=== PATIENT | female | born 1985 | race Caucasian/White ===

== ENCOUNTER 2019-01-06 02:59 | Inpatient (IN) ==
[2019-01-06] MEDS ORDERED: OXYTOCIN 30 UNITS/500 ML BAG IV PRN ×3 (03:56→13:51)
[2019-01-06] MEDS ORDERED: miSOPROStol 50 MCG TAB PO STA (04:02)
[2019-01-06] MEDS ORDERED: PENICILLIN G POTASSIUM 6 MU in DEXTROSE 5% 250 ML IV STA (04:09)
--- NOTE | 2019-01-06 04:10 | History & Physical Report ---
Date of Service January 06, 2019 Assessment & Plan (1) PROM (premature rupture of membranes): 33yo at 37.6 weeks GA. PROM 1. Fetus: Cat 1 2. Labor: PROM. SL cytotec 50mcg. 3. Vitals: WNL 4. GBS+ : PCN History of Present Illness Primary Care Provider: Av Tracey 33yo at 37.6 weeks GA. Present with LOF. Irregular contractions. No VB. Normal FM. complicated by GB+, and prescription narcotic use, Hx gastric bypass and cervical cone. Allergies Allergy/AdvReac Type Severity Reaction Status Date / Time morphine Allergy Anaphylaxis Verified 08/10/18 00:08 Home Medications Home Medications Medication Instructions Recorded Confirmed Type dicyclomine 10 mg PO BID 08/10/18 01/06/19 History hydrocodone-acetaminophen 1 tab PO Q6 PRN 08/10/18 01/06/19 History ondansetron HCl 4 mg PO TID PRN 08/10/18 01/06/19 History pantoprazole [Protonix] 40 mg PO BID 08/10/18 01/06/19 History sucralfate [Carafate] 1 g PO ACHS PRN 08/10/18 01/06/19 History polysaccharide iron complex 150 mg PO DAILY 01/06/19 01/06/19 History [Ferrex 150] vit-iron fum-folic ac 1 tab PO DAILY 01/06/19 01/06/19 History [ Vitamin] Patient History Medical History Anemia History of herniated intervertebral disc History of stomach ulcers Hx of endometriosis Chronic pain Surgical History History of removal of ovarian cyst Hx of cholecystectomy Hx of cone biopsy of cervix Hx of gastric bypass Social History Preferred Language: Swiss Communication Ability: Effective Seasoning Sprayer Required: No Beliefs That Will Affect Care: None marital status: Current Living Situation: Spouse Other Information That Helps Us Care for You: No Feels Safe at Home: Yes Safety Concerns: Feels Safe At This Time Smoking Status: Current every day smoker Tobacco Type: cigarettes Second Hand Exposure: Yes Hx Alcohol Use: No Hx Substance Use: No Physical Exam Genitourinary: Manual OB Exam: + cervical dilation (Closed), + cervical effacement 10% and + station high OB Exam Monitor Tracing: + external FHT monitor used, + external uterine monitor used, + category I and + normal FHT variability Results & Data Vital Signs (Past 12 Hours) Vital Signs Temp Pulse Resp BP 01/06/19 03:30 36.9 C 18 01/06/19 03:28 76 114/70 01/06/19 03:17 36.9 C 01/06/19 03:15 77 117/77
[2019-01-06] MEDS ORDERED: miSOPROStol 50 MCG TAB SL ONE (04:16)
[2019-01-06 04:33] LABS: Hematocrit (blood only) 30.3 % (37-47); Hemoglobin 10.3 g/dL (12.0-16.0); Mean Corpuscular Volume 100.3 fL (80-100); Mean Platelet Volume 10.4 fL (7.4-10.4); Platelet Count 196 K/uL (130-400); RDW Coefficient of Variation 12.5 % (11.5-14.5); RDW Standard Deviation 46.2 fL (36.4-46.3); Red Blood Count 3.02 M/uL (4.2-5.4); White Blood Count 14.62 K/uL (4.8-10.8)
[2019-01-06] MEDS: LACTATED RINGER'S 1,000 ML IV PRN ×2 (04:48→10:32)
[2019-01-06] MEDS: PENICILLIN G POTASSIUM 3 MU in DEXTROSE 5% 100 ML IV PRN ×2 (08:48→12:59)
--- NOTE | 2019-01-06 08:56 | Labor Progress Brief Note ---
Date of Service January 06, 2019 Subjective Patient crampy, still leaking a lot of fluid, considering epidural. Assessment & Plan (1) PROM (premature rupture of membranes): IOL for PROM to continue - move to pitocin now. I believe patient does have h/o cone (there is some controversy in her records - pap smear results show h/o cone, patient does not recall this. However she just told me at bedside that she had a "hysterectomy every 6 months for endometriosis" with Dr. Conner for up to 4 years in the past, so she may be a poor historian.) The cervix is behaving like a previously coned / scarred cervix. Therefore moving to pitocin as the effacement and station are advanced, and I suspect dilation will "pop" open in the near future. GBS antibiotics continue. PROM onset of labor timing: onset of labor more than 24 hours following rupture PROM gestational age: full term Qualified Code(s): O42.12 - Full-term premature rupture of membranes, onset of labor more than 24 hours following rupture Present on Admission?: Yes Physical Exam Physical Exam: cvx ft/100/+1 FHT Cat 1 [place] Q6 irreg LOF clear with bloody show noted Results & Data Vital Signs (Past 12 Hours) Vital Signs Temp Pulse Resp BP 01/06/19 07:07 71 113/71 01/06/19 07:04 36.8 C 16 01/06/19 06:00 18 01/06/19 05:30 18 01/06/19 03:30 36.9 C 01/06/19 03:28 76 114/70 01/06/19 03:17 36.9 C 01/06/19 03:15 77 117/77 Laboratory Results Laboratory Results - last 24 hr 01/06/19 04:14 WBC 14.62 H RBC 3.02 L Hgb 10.3 L Hct 30.3 L MCV 100.3 H MCH 34.1 H MCHC 34.0 RDW Std Deviation 46.2 RDW Coeff of [place] 12.5 Plt Count 196 MPV 10.4
[2019-01-06] MEDS ORDERED: fentaNYL citrate 100 MCG/2 ML VIAL ONE (09:57)
[2019-01-06] MEDS ORDERED: BUPIVACAINE 0.25% 30 ML VIAL ONE (09:57)
[2019-01-06] MEDS ORDERED: ePHEDrine sulfate 50 MG/ML AMP ONE (09:57)
[2019-01-06] MEDS ORDERED: fentaNYL 2MCG/ML ROPIV 1.25MG/ML 100 ML BAG EPI ONE (09:58)
[2019-01-06] MEDS ORDERED: DiphenhydrAMINE HCL 50 MG/ML VIAL IV PRN (10:18)
[2019-01-06] MEDS ORDERED: ONDANSETRON INJ 2 MG/ML 2 ML VIAL IV PRN (10:18)
[2019-01-06] MEDS ORDERED: NALOXONE HCL 1 MG in SODIUM CHLORIDE 0.9% 1000ML 1,000 ML IV PRN (10:18)
[2019-01-06] MEDS ORDERED: ePHEDrine sulfate 50 MG/ML AMP IV PRN (10:18)
[2019-01-06] MEDS ORDERED: NALOXONE HCL 0.4 MG/1 ML VIAL/CARP IV PRN (10:18)
[2019-01-06] MEDS ORDERED: fentaNYL 2MCG/ML ROPIV 1.25MG/ML 100 ML BAG EPI PRN (10:18)
--- NOTE | 2019-01-06 10:19 | Anesthesiology Consultation ---
Date of Service January 06, 2019 Assessment & Plan (1) Encounter for pre-operative examination: Chart Review Chart Review: Patient NOT seen in Pre Admission Testing and Acceptable Risk for Labor Epidural Consults Requested none History Height/Weight Height: 5 ft 4 in Weight: 84.822 kg Allergies Allergy/AdvReac Type Severity Reaction Status Date / Time morphine Allergy Anaphylaxis Verified 08/10/18 00:08 Medications Home Medications Medication Instructions Recorded Confirmed Last Taken dicyclomine 10 mg PO BID 08/10/18 01/06/19 12/27/18 hydrocodone-acetaminophen 1 tab PO Q6 PRN 08/10/18 01/06/19 12/27/18 ondansetron HCl 4 mg PO TID PRN 08/10/18 01/06/19 01/05/19 pantoprazole [Protonix] 40 mg PO BID 08/10/18 01/06/19 01/05/19 sucralfate [Carafate] 1 g PO ACHS PRN 08/10/18 01/06/19 12/18/18 polysaccharide iron complex 150 mg PO DAILY 01/06/19 01/06/19 01/05/19 [Ferrex 150] vit-iron fum-folic ac 1 tab PO DAILY 01/06/19 01/06/19 01/05/19 [ Vitamin] Active Medications Generic Name Dose Route Start Last Admin Trade Name Freq PRN Reason Stop Dose Admin Lactated Ringer's 1,000 mls @ 125 mls/hr 01/06/19 03:56 01/06/19 10:32 Lr IV 01/08/19 03:55 125 mls/hr .Q8H PRN Administration L&D Protocol Protocol Penicillin G Potassium 3 mu/ 106 mls @ 100 mls/hr 01/06/19 03:56 01/06/19 10:23 Dextrose IV 01/16/19 03:55 Infused Q4H PRN Titration Give until delivery Oxytocin 30 units in 500 mls @ 1 mls/hr 01/06/19 08:52 01/06/19 09:30 Pitocin IV 01/08/19 08:51 0.06 units/hr .Q24H PRN 1 mls/hr Labor Induction/Augmentation Administration Protocol 0.06 UNITS/HR Past Medical History Medical History Anemia History of herniated intervertebral disc History of stomach ulcers Hx of endometriosis Chronic pain chronic back pain. denied neurologic deficits Exercise / Class Metabolic Activity II 4-5 Yardwork/Stairs/Walk up hill Past Surgical History Surgical History History of removal of ovarian cyst Hx of cholecystectomy Hx of cone biopsy of cervix Hx of gastric bypass Past Anesthesia History No Hx of Anesthesia Complications and No Family Hx of Anesthesia Complications History of PONV No Hx of PONV and No Hx of Motion Sickness Social History Smoking Status: Current every day smoker tobacco type: cigarettes Hx Alcohol Use: No Hx Substance Use: No Physical Exam Vital Signs Last Vital Signs Temp 36.7 C 01/06/19 09:05 Pulse 72 01/06/19 10:37 Resp 16 01/06/19 09:05 BP 124/77 01/06/19 10:25 Pulse Ox 99 01/06/19 10:37 Testing Laboratory Results 01/06/19 04:14
--- NOTE | 2019-01-06 11:42 | Labor Progress Brief Note ---
Date of Service January 06, 2019 Subjective Was feeling pressure with contractions prior to epidural; now feeling nothing. Assessment & Plan (1) PROM (premature rupture of membranes): No urge to push and just got pain relief; wants to wait a bit to allow urge to return before pushing. Plan to start second stage with urge or no later than 12:30. PROM onset of labor timing: onset of labor more than 24 hours following rupture PROM gestational age: full term Qualified Code(s): O42.12 - Full-term premature rupture of membranes, onset of labor more than 24 hours following rupture Present on Admission?: Yes Physical Exam Physical Exam: FHT Cat 1 [place] Q2-6 irreg Cvx 10/100/+2 Bloody show noted LOF clear continues Results & Data Vital Signs (Past 12 Hours) Vital Signs Temp Pulse Resp BP Pulse Ox 01/06/19 11:38 72 109/60 01/06/19 11:37 73 100 01/06/19 11:32 71 100 01/06/19 11:31 73 117/66 01/06/19 11:27 70 107/65 100 01/06/19 11:22 69 100 01/06/19 11:21 66 109/64 01/06/19 11:17 71 107/63 100 01/06/19 11:15 16 01/06/19 11:12 74 100 01/06/19 11:07 72 100 01/06/19 11:06 70 105/61 01/06/19 11:02 76 100 01/06/19 11:00 36.6 C 16 01/06/19 10:59 75 110/70 01/06/19 10:57 79 114/75 100 01/06/19 10:55 69 107/64 01/06/19 10:53 75 117/69 01/06/19 10:52 75 100 01/06/19 10:51 73 106/65 01/06/19 10:49 77 110/70 01/06/19 10:47 78 118/68 100 01/06/19 10:45 73 16 109/69 01/06/19 10:43 74 109/70 01/06/19 10:42 78 95 01/06/19 10:37 72 99 01/06/19 10:32 73 99 01/06/19 10:28 100 H 90 01/06/19 10:27 84 95 01/06/19 10:25 71 124/77 01/06/19 10:22 76 100 01/06/19 10:17 73 100 01/06/19 10:12 75 100 01/06/19 10:07 83 96 01/06/19 10:02 73 100 01/06/19 09:20 78 119/76 01/06/19 09:05 36.7 C 16 01/06/19 07:07 71 113/71 01/06/19 07:04 36.8 C 16 01/06/19 06:00 18 01/06/19 05:30 18 01/06/19 03:30 36.9 C 18 01/06/19 03:28 76 114/70 01/06/19 03:17 36.9 C 18 01/06/19 03:15 77 117/77
--- NOTE | 2019-01-06 13:33 | Procedure Note ---
Vaginal Delivery Summary Date of Service January 06, 2019 Patient pushed to deliver a viable female in ROP position. The shoulders and body delivered without any difficulty. The infant was placed on the maternal abdomen and the cord was doubly clamped by the MD, then cut by the FOB. The placenta delivered spontaneously and intact with a 3VC. A second degree perineal tear and a R labial tear were both repaired without difficulty using vicryl suture. Fundus was firm and lochia minimal after delivery. EBL 300.
[2019-01-06] MEDS ORDERED: BENZOCAINE 20% AER SPR 82.5 GM CAN EXT PRN (13:51)
[2019-01-06] MEDS ORDERED: ACETAMINOPHEN 325 MG TAB PO PRN (13:51)
[2019-01-06] MEDS ORDERED: HYDROCORTISONE ACETATE 25 MG SUPP PR PRN (13:51)
[2019-01-06] MEDS ORDERED: SUPERCREAM 0.870% 15 GM JAR EXT PRN (13:51)
[2019-01-06] MEDS ORDERED: DIPHTHERIA/TETANUS/PERTUSSIS 0.5 ML SYR/VIAL IM ONE (13:51)
[2019-01-06] MEDS ORDERED: IBUPROFEN 600 MG TAB PO PRN (13:51)
[2019-01-06] MEDS ORDERED: LACTATED RINGER'S 1,000 ML IV SCH (14:00)
--- NOTE | 2019-01-06 14:51 | Anesthesia Procedure Note ---
Date of Service January 06, 2019 Anesthesia Post Epidural Note Vital Signs Vital Signs: Temp Pulse Resp BP Pulse Ox 37.1 C 77 22 105/67 99 01/06/19 12:45 01/06/19 14:39 01/06/19 13:00 01/06/19 14:39 01/06/19 13:22 Pain Intensity Bilateral Abdomen: Pain Intensity: 3 Notes Mental Status: alert / awake / arousable Patient Amnestic to Procedure: Yes Nausea / Vomiting: adequately controlled Pain: adequately controlled Airway Patency, RR, SpO2: stable & adequate BP & HR: stable & adequate Hydration State: stable & adequate Neuraxial Anesthesia: was administered and sensory block is resolving Anesthetic Complications: no major complications apparent and Pt Satisfied with anesthetic care Epidural: Removed without complications and With tip intact
[2019-01-06] MEDS ORDERED: HYDROCODONE/ACETAMOPHEN 5/325MG TAB PO PRN (16:00)
[2019-01-06] MEDS: PANTOprazole 40 MG TAB PO SCH (20:31)
[2019-01-06] MEDS: DOCUSATE SODIUM 100 MG CAP PO SCH (20:31)
[2019-01-06] MEDS: DICYCLOMINE HCL 10 MG CAP PO SCH (20:31)
[2019-01-07] MEDS: SUCRALFATE 1 GM TAB PO PRN ×2 (00:46→09:45)
[2019-01-07] MEDS: ALUMINUM/MAGNESIUM/SIMETH (MAALOX MAX) 30 ML UDC PO PRN ×2 (00:46→09:47)
[2019-01-07] MEDS ORDERED: ONDANSETRON HCL 8 MG in DEXTROSE 5% 50 ML IV ONE (01:37)
[2019-01-07] MEDS ORDERED: HYDROmorphone INJ 0.5 MG/0.5 ML SYR IV STA (03:03)
--- NOTE | 2019-01-07 03:18 | Communication Note ---
Date of Service: January 07, 2019 I was called by RN to see the patient due to ongoing upper abdominal / stomach pain and nausea despite carafate, maalox and zofran as ordered. I arrived to find the room dark, FOB in bed and either calm/quiet or asleep, and the bathroom door closed, no sounds from within the bathroom. After I said "hello?" the FOB said "she's in the bathroom." I then heard retching noises. I asked permission then opened the bathroom door to find Nichole on her knees in front of the toilet wearing only a shirt, and rocking back and forth. There was a small amout of clear spittle on top of the toilet water but no obvious emesis. The patient told me "it's my ulcers, they're real bad." She is confident of this as the pain feels exactly like when she had exacerbation of ulcers in the past. At those times she says she "went to the ER and they gave me a GI cocktail and IV dilaudid." I asked if the carafate/maalox/zofran she already had was helpful and she says "the norco helped until I threw it up an hour ago." She is passing gas and has voided since delivery. She was delivered vaginally and without unusual events or difficulties; in fact it was a fairly short second stage. She was able to sit back and allow me to do an exam. The abdomen is soft, nontender, without guarding or rebound. There is a fundus palpable at the umbilicus. She points to the epigastric region when asked to localize her pain. She does not seem to have significant esophageal pain above the level of the xyphoid. Her voice is normal and fluid when she responds to questions in the bathroom. Her respirations are normal and nonlabored. I gathered further information from the nurse. The patient's prior emesis was not witnessed; she has only seen spit in the toilet and specifically denies any bilious or bloody quality to any of that. The patient is known to have had a gastric bypass and the RN is aware, and the patient has not had any motrin. Additionally the patient has a chronic narcotic use history, with prescription of 30 tabs of [place] per 22 days from her PCP. She states she quit cold turkey using several tabs per day as of December 27 and has had none since then "because she didn't want the baby to be born addicted." I note that mom's vitals have been normal, and status in utero was reassuring. The differential of her current condition is broad. It ranges from disruption of her gastric bypass, or pancreatitis, or peptic ulcer disease, to GERD, and even withdrawal from narcotics or drug seeking behavior. The lack of obvious bilious or bloody emesis, and her benign abdominal exam, are somewhat reassuring. Nevertheless I am ordering labs and have advised the RN to alert me immediately if there is blood in emesis at any point. I have also ordered viscous lidocaine cocktail, and one dose of IV dilaudid to cover both pain and/or possible withdrawal with inability to tolerate PO.
[2019-01-07] MEDS ORDERED: ALUMINUM/MAGNESIUM SUSP 18 ML, LIDOCAINE HCL VISCOUS 2% 6 ML, BARCODE IDENTIFIER 1 EA PO ONE ×3 (03:30→21:00)
[2019-01-07 03:46] LABS: Hematocrit (blood only) 33.1 % (37-47); Mean Corpuscular Hgb Conc 33.2 g/dL (32-36); Mean Corpuscular Volume 102.2 fL (80-100); Mean Platelet Volume 10.2 fL (7.4-10.4); Platelet Count 202 K/uL (130-400); RDW Coefficient of Variation 12.4 % (11.5-14.5); RDW Standard Deviation 45.9 fL (36.4-46.3); Red Blood Count 3.24 M/uL (4.2-5.4); White Blood Count 25.41 K/uL (4.8-10.8)
[2019-01-07 04:10] LABS: Albumin Level 2.7 gm/dl (3.4-5.0); BUN Creatinine Ratio 12.6 (10-20); Basophils # (auto) 0.03 K/uL (0-0.2); Basophils % (auto) 0.1 %; Calcium 8.7 mg/dl (8.5-10.1); Creatinine Clr Calc Pharmacy 131.7 ml/min; Eosinophils # (auto) 0.03 K/uL (0-0.5); Eosinophils % (auto) 0.1 %; Est GFR (African American) 135.9; Est GFR (Non-African American) 117.2; Immature Granulocytes # (auto) 0.21 K/uL (0.00-0.02); Immature Granulocytes % (auto) 0.8 %; Lymphocytes # (auto) 1.62 K/uL (1.2-3.4); Lymphocytes % (auto) 6.4 %; Monocytes # (auto) 1.07 K/uL (0.11-0.59); Monocytes % (auto) 4.2 %; Neutrophils # (auto) 22.45 K/uL (1.4-6.5); Neutrophils % (auto) 88.4 %; Potassium 4.1 mmol/L (3.5-5.1); RBC Morphology Unremarkable
[2019-01-07 04:13] LABS: Albumin Globulin Ratio 0.8 (0.9-2); Bilirubin,Total 0.3 mg/dl (0.2-1); Globulin 3.5 gm/dl (2.5-4.0); Total Protein 6.2 gm/dl (6.4-8.2)
--- NOTE | 2019-01-07 04:41 | Communication Note ---
Date of Service: January 07, 2019 Patient examined again. She is found in bed, in knee-chest position, with FOB asleep in his cot nearby. She states she got "some" relief from the lidocaine but still hurting in the same epigastric location. I asked if this has happened before and she relates that yes, this same pain and severity are not uncommon for her at home; her FOB is "used to this" and she takes the norco at home for this exact pain. I asked the patient to lay back so I could re-examine her abdomen. She continues to have a soft, nontender, nonrigid abdomen without guarding or rebound. Fundus firm at umb. Pain continues to be in epigastric region and is not significantly exacerbated by palpation. Patient is able to reposition without difficulty and her resp rate and voice remain normal. Vitals and labs reviewed. VSS WNL, and the labs are reassuring. The WBC are elevated but this is not unexpected in the immediate setting and are not accompanied by vital sign changes suspicious for infection/peritonitis. Pancreatic and liver enzymes are normal, lytes are normal. Patient requests norco 2x tablets as this is what she takes at home for this pain. I note that nobody actually witnessed emesis of her prior norco tablet a few hours ago, and that she also has received 0.5mg dilaudid IV; however given her chronic narcotic use levels at home based on PDMP, I suspect she will not be over-treated with two norco tabs given at this time even if she fully absorbed the prior dose. Ordered at this time.
[2019-01-07] MEDS: HYDROCODONE/ACETAMOPHEN 5/325MG TAB PO PRN ×4 (05:08→21:11)
--- NOTE | 2019-01-07 05:59 | Obstetrical Progress Note ---
Date of Service <Alex Page DO - Last Filed: 01/07/19 05:59> January 07, 2019 Assessment & Plan <Alex Page DO - Last Filed: 01/07/19 05:59> (1) (spontaneous vaginal delivery): -vital signs reviewed and WNL -last Hgb 11.0 -Blood type: A+, GBS+, Rubella Immune -pt doing well clinically -encourage ambulation, monitor and control pain with motrin tylenol, cont regular diet, monitor lochia -cont encourage bottle/breast feeding Subjective <Alex Page DO - Last Filed: 01/07/19 05:59> 33 y/o PPD1 found in bed this morning in mild distress. Overnight reports of abd pain and associated N/V. Pt not tolerating PO intake, notes has vomited ~12 times, non bloody. Abd pain has somewhat improved since lidocaine cocktail and notes vomiting is also slowing down, latest episode just phlegm colored. Pt states that she has no other pain other than appropriate soreness. Has not yet attempted to ambulate. She is bottle feeding without issue. No issues with voiding, no BM yet. No other acute concerns or complaints. Review of Systems All systems reviewed & are unremarkable except as noted in HPI & below Physical Exam <Alex Page DO - Last Filed: 01/07/19 05:59> Constitutional WD/WN, vitals as above Respiratory normal respiratory effort, lungs clear to auscultation Cardiovascular RRR, no murmur, no edema Gastrointestinal (Abdomen) mild epigastric tenderness, no guarding/rebound Fundus not able to be palpated 2/2 pain and limited pt cooperation, please see attending findings Skin no rashes, warm and dry Psychiatric A+Ox3, euthymic affect Lymphatic no LE swelling, no calf tenderness Results & Data <Alex Page DO - Last Filed: 01/07/19 05:59> Vital Signs (Past 12 Hours) Vital Signs Temp Pulse Resp BP Pulse Ox 01/07/19 03:44 36.5 C 80 18 135/83 100 01/06/19 23:11 36.6 C 75 16 113/78 100 01/06/19 19:27 36.9 C 72 20 122/78 100 Laboratory Results Laboratory Results - last 24 hr 01/07/19 01/07/19 03:34 03:34 WBC 25.41 H D RBC 3.24 L Hgb 11.0 L Hct 33.1 L MCV 102.2 H MCH 34.0 MCHC 33.2 RDW Std Deviation 45.9 RDW Coeff of [place] 12.4 Plt Count 202 MPV 10.2 Immature Gran % (Auto) 0.8 Neut % (Auto) 88.4 Lymph % (Auto) 6.4 [place] % (Auto) 4.2 Eos % (Auto) 0.1 Baso % (Auto) 0.1 Immature Gran # (Auto) 0.21 H Neut # (Auto) 22.45 H Lymph # (Auto) 1.62 [place] # (Auto) 1.07 H Eos # (Auto) 0.03 Baso # (Auto) 0.03 RBC Morphology Unremarkable Sodium 143 Potassium 4.1 Chloride 114 H Carbon Dioxide 24 Anion Gap 5.0 BUN 8 Creatinine 0.64 Est Cr Clr Drug Dosing 131.7 Est GFR ( Amer) 135.9 Est GFR (Non-Af Amer) 117.2 BUN/Creatinine Ratio 12.6 Glucose 111 H Calcium 8.7 Total Bilirubin 0.3 AST 23 ALT 17 Alkaline Phosphatase 144 H Total Protein 6.2 L Albumin 2.7 L Globulin 3.5 Albumin/Globulin Ratio 0.8 L Amylase 39 Lipase 202 Medications Administered Current Inpatient Medications Acetaminophen (Tylenol) 650 mg PO Q6H PRN PRN Reason: Pain/JOSEPH/Fever Stop: 02/05/19 13:50 Last Admin: 01/06/19 17:53 Dose: 650 mg Documented by: Hydrocodone Bitart/Acetaminophen ([place] 5/325) 1 - 2 tab PO Q6H PRN PRN Reason: Pain Stop: 01/21/19 04:39 Last Admin: 01/07/19 05:08 Dose: 2 tab Documented by: Al Hydrox/Mg Hydrox/Simethicone (Maalox Max) 30 ml PO Q6H PRN PRN Reason: GI Upset Stop: 02/06/19 00:08 Last Admin: 01/07/19 00:46 Dose: 30 ml Documented by: Benzocaine (Dermoplast Pain Relieving [place]) 1 appln EXT PRN PRN PRN Reason: Perineal Discomfort Stop: 02/05/19 13:50 Last Admin: 01/06/19 16:26 Dose: 1 appln Documented by: Cocaine HCl (Supercream 0.870%) 1 gm EXT BID PRN PRN Reason: Hemorrhoidal Inflammation Stop: 01/20/19 13:50 Last Admin: 01/06/19 17:43 Dose: 1 gm Documented by: Dicyclomine HCl (Bentyl) 10 mg PO BID MARY Stop: 02/05/19 20:59 Last Admin: 01/06/19 20:31 Dose: 10 mg Documented by: Diphenhydramine HCl (Benadryl Capsule) 25 mg PO Q8 PRN PRN Reason: Itching Stop: 02/05/19 15:58 Last Admin: 01/06/19 16:07 Dose: 25 mg Documented by: Docusate Sodium (Colace) 100 mg PO BID MARY Stop: 02/05/19 20:59 Last Admin: 01/06/19 20:31 Dose: 100 mg Documented by: Hydrocortisone (Anusol Hc) 25 mg AR BID PRN PRN Reason: Hemorrhoidal Inflammation Stop: 02/05/19 13:50 Oxytocin (Pitocin) 30 units in 500 mls @ 333.333 mls/hr IV .Q1H30M PRN; Protocol PRN Reason: Bleeding Control Stop: 02/05/19 03:55 Oxytocin (Pitocin) 30 units in 500 mls @ 333.333 mls/hr IV .Q1H30M PRN; Protocol PRN Reason: Bleeding Control Stop: 02/05/19 13:50 Lactated Ringer's (Lr) 1,000 mls @ 125 mls/hr IV .Q8H MARY Stop: 02/05/19 13:59 Pantoprazole Sodium (Protonix) 40 mg PO BID MARY Stop: 02/05/19 20:59 Last Admin: 01/06/19 20:31 Dose: 40 mg Documented by: Prenat Multivit/[employer]/Iron/Folic Ac ( Vitamin) 1 tab PO QAM MARY Stop: 02/06/19 08:59 Sucralfate (Carafate Tab) 1 gm PO ACHS PRN PRN Reason: Gi Upset Stop: 02/06/19 00:08 Last Admin: 01/07/19 00:46 Dose: 1 gm Documented by: <Tete Scales MD - Last Filed: 01/07/19 07:00> Co-Signing Physician Notes Patient examined again this morning after resident visited her. She is noted to be sleeping on my arrival, easily roused to voice. She states pain is now controlled. Lochia normal, voiding, +flatus, +regular diet and no further emesis since viscous lidocaine and last two pills norco. VSS and WNL. Abdomen remains soft, NT, no rebound or guarding, and FF @ u. Of note, nurse has become aware that there are several prescription medications in the room which patient brought from home. The patient states that some of these are her 's, some are hers. Nurse current cataloguing what is in the room. There is one bottle of carafate labeled as being for the patient. There are some unlabeled bottles whose contents (including several different pill types) and funeral director/embalmer/owner cannot be determined for certain. The patient states she would prefer to send these meds home with family members as opposed to having security hold them during her stay. The importance of NOT taking any meds in addition to those we are providing and monitoring was reiterated to her by nurse. Resident Activity Tracking <Alex Page DO - Last Filed: 01/07/19 05:59> Resident Involvement: Resident Care Provided Care Provided: OB Delivery
[2019-01-07] MEDS: PANTOprazole 40 MG TAB PO SCH ×2 (09:44→21:10)
[2019-01-07] MEDS: DICYCLOMINE HCL 10 MG CAP PO SCH ×2 (09:45→21:10)
[2019-01-07] MEDS: DOCUSATE SODIUM 100 MG CAP PO SCH (09:48)
[2019-01-07] MEDS: PRENATAL VITAMIN 1 TAB PO SCH (09:49)
[2019-01-07] MEDS: SUCRALFATE 1 GM/10 ML UDC PO PRN ×2 (12:38→16:58)
[2019-01-07] MEDS: PROMETHAZINE HCL 25 MG TAB PO PRN ×2 (13:11→21:10)
--- NOTE | 2019-01-07 15:00 | Obstetrical Progress Note ---
Date of Service January 07, 2019 Subjective Called to patient room to see her - she is lying on the bed facedown in position. She tells me she has abdominal pain, states this is long-standing, and that she usually takes norco and ativan for this, as prescribed by PCP. She has taken [place] today, but then about 1.5 hours later, threw up and felt that it was only partially digested. She was given PO phenergan for that vomiting and then stated that she vomited a while later after that too. The vomitus has been mostly clear, but there has also been some streaks of bright red blood. No black/tarry/coffee-ground like vomitus. States her IV pulled out while she was throwing up this morning. She also will often be given a GI cocktail in the ER for this type of pain, will try this now with a dose of PO benadryl to help sleep. I explained that I do not typically prescribe ativan for help getting rest . Results & Data Vital Signs (Past 12 Hours) Vital Signs Temp Pulse Resp BP Pulse Ox 01/07/19 12:30 36.8 C 74 18 146/84 H 98 01/07/19 09:45 36.6 C 67 18 136/88 01/07/19 03:44 36.5 C 80 18 135/83 100
[2019-01-08] MEDS: SUCRALFATE 1 GM/10 ML UDC PO PRN ×2 (02:12→12:00)
[2019-01-08] MEDS: ALUMINUM/MAGNESIUM/SIMETH (MAALOX MAX) 30 ML UDC PO PRN (02:12)
[2019-01-08] MEDS: HYDROCODONE/ACETAMOPHEN 5/325MG TAB PO PRN ×3 (02:42→14:58)
[2019-01-08] MEDS: PROMETHAZINE HCL 25 MG TAB PO PRN ×2 (02:44→08:56)
--- NOTE | 2019-01-08 06:42 | Obstetrical Progress Note ---
Date of Service <Alexshiva Page - Last Filed: 01/08/19 06:42> January 08, 2019 Assessment & Plan <Alexmaria a LinelDO - Last Filed: 01/08/19 06:42> (1) (spontaneous vaginal delivery): -vital signs reviewed and WNL -last Hgb 11.0 -Blood type: A+, GBS+, Rubella Immune -pt doing well clinically -encourage ambulation, monitor and control pain with motrin tylenol (other pain control per attending discretion), cont regular diet, monitor lochia -cont encourage bottle/breast feeding -plan for d/c today Subjective <Alex Page DO - Last Filed: 01/08/19 06:42> 33 y/o PPD2 found in bed this morning in prone position in mild distress. Reports of ongoing abd pain and associated N/V (every hour). States that has not had anything to eat since giving . Abd pain 7/10 this AM. Pain/N/V not improved with current medication regimen. Pt states that she has no other pain other than appropriate soreness. No issues with ambulation. She is gisel ttle feeding without issue. No issues with voiding. No other acute concerns or complaints. Pt ok with plan for d/c today. Review of Systems All systems reviewed & are unremarkable except as noted in HPI & below Physical Exam <Alexmaria a Page DO - Last Filed: 01/08/19 06:42> Constitutional WD/WN, vitals as above Respiratory normal respiratory effort, lungs clear to auscultation Cardiovascular RRR, no murmur, no edema Gastrointestinal (Abdomen) mild epigastric tenderness, no rebound/guarding fundus not able to be palpated due to limited cooperation of pt, please defer to attending findings Skin no rashes, warm and dry Psychiatric A+Ox3, euthymic affect Lymphatic no LE swelling, no calf tenderness Results & Data <Alexmaria a Page DO - Last Filed: 01/08/19 06:42> Vital Signs (Past 12 Hours) Vital Signs Temp Pulse Resp BP Pulse Ox 01/07/19 23:00 36.9 C 82 18 132/84 01/07/19 19:30 37.3 C 76 18 127/74 98 Medications Administered Current Inpatient Medications Acetaminophen (Tylenol) 650 mg PO Q6H PRN PRN Reason: Pain/JOSEPH/Fever Stop: 02/05/19 13:50 Last Admin: 01/06/19 17:53 Dose: 650 mg Documented by: Hydrocodone Bitart/Acetaminophen ([place] 5/325) 1 - 2 tab PO Q6H PRN PRN Reason: Pain Stop: 01/21/19 04:39 Last Admin: 01/08/19 02:42 Dose: 2 tab Documented by: Al Hydrox/Mg Hydrox/Simethicone (Maalox Max) 30 ml PO Q6H PRN PRN Reason: GI Upset Stop: 02/06/19 00:08 Last Admin: 01/08/19 02:12 Dose: 30 ml Documented by: Benzocaine (Dermoplast Pain Relieving [place]) 1 appln EXT PRN PRN PRN Reason: Perineal Discomfort Stop: 02/05/19 13:50 Last Admin: 01/06/19 16:26 Dose: 1 appln Documented by: Cocaine HCl (Supercream 0.870%) 1 gm EXT BID PRN PRN Reason: Hemorrhoidal Inflammation Stop: 01/20/19 13:50 Last Admin: 01/06/19 17:43 Dose: 1 gm Documented by: Dicyclomine HCl (Bentyl) 10 mg PO BID MARY Stop: 02/05/19 20:59 Last Admin: 01/07/19 21:10 Dose: 10 mg Documented by: Diphenhydramine HCl (Benadryl Capsule) 25 mg PO Q8 PRN PRN Reason: Itching Stop: 02/05/19 15:58 Last Admin: 01/06/19 16:07 Dose: 25 mg Documented by: Diphenhydramine HCl (Benadryl Capsule) 50 mg PO Q6 PRN PRN Reason: Sleep Stop: 02/06/19 14:48 Docusate Sodium (Colace) 100 mg PO BID MARY Stop: 02/05/19 20:59 Last Admin: 01/07/19 09:48 Dose: Not Given Documented by: Hydrocortisone (Anusol Hc) 25 mg UT BID PRN PRN Reason: Hemorrhoidal Inflammation Stop: 02/05/19 13:50 Oxytocin (Pitocin) 30 units in 500 mls @ 333.333 mls/hr IV .Q1H30M PRN; Protocol PRN Reason: Bleeding Control Stop: 02/05/19 03:55 Oxytocin (Pitocin) 30 units in 500 mls @ 333.333 mls/hr IV .Q1H30M PRN; Protocol PRN Reason: Bleeding Control Stop: 02/05/19 13:50 Lactated Ringer's (Lr) 1,000 mls @ 125 mls/hr IV .Q8H MARY Stop: 02/05/19 13:59 Pantoprazole Sodium (Protonix) 40 mg PO BID MARY Stop: 02/05/19 20:59 Last Admin: 01/07/19 21:10 Dose: 40 mg Documented by: Prenat Multivit/[place]/Iron/Folic Ac ( Vitamin) 1 tab PO QAM MARY Stop: 02/06/19 08:59 Last Admin: 01/07/19 09:49 Dose: Not Given Documented by: Promethazine HCl (Phenergan) 25 mg PO Q6H PRN PRN Reason: Nausea And Vomiting Stop: 02/06/19 12:54 Last Admin: 01/08/19 02:44 Dose: 25 mg Documented by: Sucralfate (Carafate) 1 gm PO ACHS PRN PRN Reason: Gi Upset Stop: 02/06/19 10:01 Last Admin: 01/08/19 02:12 Dose: 1 gm Documented by: <Miladys Roy DO - Last Filed: 01/08/19 08:02> Co-Signing Physician Notes Resident Physician Supervision Note: I interviewed and examined the patient. Discussed with Dr. Page and agree with findings and plan as documented in the note. Any exceptions or clarifications are listed here: PPD#2. Obstetrically, doing well. She has reported off-and-on abdominal pain and vomiting in the period. She is tolerating liquids. Yesterday, she told me that she typically feels better with ativan, but I discussed with her that this is not really a medication that I would recommend for abdominal pain; she then felt significant relief with GI cocktail (maalox and viscous lidocaine). I offered her phenergan suppository for nausea, but she refuses, stating "oh no, I don't need that." She would like to be discharged to home - I recommend that she follow up within 1 week with her primary care physician and her GI. She is agreeable to this. Discharge teaching done. Documented By: Miladys Roy DO Resident Activity Tracking <Alex Page DO - Last Filed: 01/08/19 06:42> Resident Involvement: Resident Care Provided Care Provided: OB Delivery
[2019-01-08] MEDS: PANTOprazole 40 MG TAB PO SCH (08:14)
[2019-01-08] MEDS: DICYCLOMINE HCL 10 MG CAP PO SCH (08:14)
[2019-01-08] MEDS ORDERED: ALUMINUM/MAGNESIUM SUSP 18 ML, LIDOCAINE HCL VISCOUS 2% 6 ML, BARCODE IDENTIFIER 1 EA PO ONE ×2 (08:24→15:00)
[2019-01-08] MEDS: PRENATAL VITAMIN 1 TAB PO SCH (10:16)
[2019-01-08] MEDS: DOCUSATE SODIUM 100 MG CAP PO SCH ×2 (10:17→12:24)
== END 2019-01-08 17:30 | disposition home or self-care (01) | DRG 807 ==
LOC: OPB 02:59 → 4S1 03:01 → 4S2 16:36